=== PATIENT | female | born 1995 | race Caucasian/White ===

== ENCOUNTER 2023-11-11 05:34 | Inpatient (IN) | payer BC ==
[2023-11-11] VITALS (18 sets, daily range): BP systolic 93–138; BP diastolic 57–109; PULSE 60–83; TEMP 97.6–98.5
[2023-11-11] MEDS ORDERED: LR 1,000 ML IV SCH ×3 (06:30→06:45)
[2023-11-11] MEDS ORDERED: Ondansetron 4 MG/2 ML VIAL IV SCH (06:45)
[2023-11-11] MEDS ORDERED: Ondansetron 4 MG/2 ML VIAL IV PRN ×2 (06:45→07:30)
[2023-11-11] MEDS ORDERED: Morphine 4 MG/ML VIAL IV PRN (06:45)
[2023-11-11] MEDS ORDERED: PRENATAL TABLET PO (06:51)
[2023-11-11] MEDS ORDERED: COLACE 100100 MG/CAP PO (06:51)
[2023-11-11] MEDS ORDERED: URSO250 MG (06:52)
[2023-11-11] MEDS ORDERED: Oxytocin 10 UNITS/ML VIAL ONE (06:55)
[2023-11-11] MEDS ORDERED: NS 10 ML IV ONE (06:55)
[2023-11-11] MEDS ORDERED: dexAMETHasone 10 MG/ML VIAL ONE (06:55)
[2023-11-11] MEDS ORDERED: Ketorolac 30 MG/ML VIAL ONE (06:55)
[2023-11-11] MEDS ORDERED: Ondansetron 4 MG/2 ML VIAL ONE (06:55)
--- NOTE | 2023-11-11 07:15 | NUR ---
Pt in room and in hospital gown at 0605. EFM explained and placed, VS taken. IV started in left forearm, labs drawn, LR started per orders. Consents discussed and signed, assessment performed. Abdominal prep done. Pt escorted back to OR for scheduled at 0730.
[2023-11-11] MEDS ORDERED: PERCOCET 325 MG1 TA2 PO (07:21)
[2023-11-11] MEDS ORDERED: MOTRIN 800800 MG/TAB PO (07:21)
[2023-11-11 07:25] LABS: BASO % 0.4 % (0.0-2.0); EOS # 0.1 K/mm3 (0.0-0.7); EOS % 1.1 % (0.0-4.0); GRAN # 5.8 K/mm3 (1.4-6.5); GRAN % 69.3 % (42.2-75.2); HEMOGLOBIN 11.1 g/dl (12.5-16.0); LYMPH # 1.7 K/mm3 (1.2-3.4); LYMPH % 19.8 % (20.0-51.0); MEAN CELL VOLUME 90 fl (80.0-100.0); MEAN CORPUSCULAR HEMOGLOBIN 30 pg (27-31); MEAN CORPUSCULAR HGB CONC 33 g/dl (33.0-37.0); MEAN PLATELET VOLUME 10.8 fl (7.4-10.4); MONO # 0.7 K/mm3 (0.1-0.6); MONO % 8.9 % (1.7-9.3); PLATELET COUNT 198 K/mm3 (130-400); RED BLOOD COUNT 3.68 M/mm3 (4.10-5.30); REDCELL DISTRIBUTION WIDTH-CV 13.1 % (11.5-14.5)
[2023-11-11 07:30] LABS: HEMATOCRIT 33.2 % (37.0-47.0)
[2023-11-11] MEDS ORDERED: Measles/Mumps/Rubella Virus Vaccine Live w Diluent 0.5 ML VIAL SQ SCH (07:30)
[2023-11-11] MEDS ORDERED: Loratadine 10 MG TAB PO PRN (07:30)
[2023-11-11] MEDS ORDERED: oxyCODONE 5 MG TAB PO PRN (07:30)
[2023-11-11] MEDS ORDERED: Magnes Hydrox (MOM) 80 MG/ML 30 ML CUP PO PRN (07:30)
[2023-11-11] MEDS ORDERED: LR 1,000 ML IV PRN (07:30)
[2023-11-11] MEDS ORDERED: Naloxone 0.4 MG/ML VIAL IV PRN (07:30)
[2023-11-11] MEDS ORDERED: Acetaminophen 500 MG TAB PO PRN (07:30)
[2023-11-11] MEDS ORDERED: Sennosides/Docusate 8.6-50 MG TAB PO SCH (08:00)
[2023-11-11] MEDS ORDERED: Phenylephrine 10 MG/ML VIAL ONE (08:16)
[2023-11-11] MEDS ORDERED: LR 1,000 ML IV ONE ×2 (08:18→08:39)
[2023-11-11] MEDS ORDERED: Ibuprofen 800 MG TAB PO SCH (14:00)
--- NOTE | 2023-11-11 15:16 | NUR ---
SCDs removed. Pt up to sitting at bedside independently. Pt denies dizziness/lightheadedness. Pt then up to standing at bedside independenlty, denies discomfort. Pt ambulates with standby assist to bathroom, sits on toilet. Loera removed, pericare provided, gown changed, panties and pad placed. Pt ambulates to sink with standby assist, does self-care. Bed pad changed, binder applied, pt assisted back into bed. Pt denies needs at this time.
[2023-11-11] MEDS ORDERED: traZODone 50 MG TAB PO PRN (21:00)
[2023-11-12 04:30] VITALS: BP 122/60; PULSE 62; TEMP 98
[2023-11-12 07:20] VITALS: BP 123/74; PULSE 62; TEMP 98
[2023-11-12] MEDS ORDERED: Omeprazole 20 MG **** subs to Pantoprazole 40 MG PO SCH (07:45)
--- NOTE | 2023-11-12 09:55 | NUR ---
Initial visit; Parents thanked [employer] for looking in on them and offering congratulations and God's blessings for the of their daughter. [employer] thanked family for choosing [facility] and for letting [employer] know their stay here has been a pleasant one.
[2023-11-12 16:53] VITALS: BP 120/60; PULSE 70; TEMP 98.1
[2023-11-12 19:00] VITALS: BP 122/77; PULSE 68; TEMP 97.9
[2023-11-13 08:30] VITALS: BP 125/74; PULSE 67; TEMP 98.8
--- NOTE | 2023-11-13 11:33 | NUR ---
ALL DC INSTRUCTIONS AND FOLLOW UP APPOINTMENTS REVIEWED AND UNDERSTOOD BY PT AND FOB. ALL BELONGINGS ACCOUNTED FOR. DENY FURTHER QUESTION OR CONCERNS. AMBULATORY FROM UNIT IN STABLE CONDITION @ 1576.
== END 2023-11-13 11:33 | disposition home or self-care (01) | DRG 787 ==
LOC: OB 05:34
PROVIDERS: ADMIT Obstetrics & Gynecology
PROC: 10D00Z1 Extraction of Products of Conception, Low, Open Approach (ICD-10-PCS; principal; 2023-11-11)
DX: O32.1XX0 Maternal care for breech presentation, not applicable or unspecified (principal); O26.643 Intrahepatic cholestasis of pregnancy, third trimester; Z3A.37 37 weeks gestation of pregnancy; Z37.0 Single live birth; E78.79 Other disorders of bile acid and cholesterol metabolism; K76.89 Other specified diseases of liver; O69.81X0 Labor and delivery complicated by cord around neck, without compression, not applicable or unspecified; Z88.8 Allergy status to other drugs, medicaments and biological substances; Z91.018 Allergy to other foods
CPT/HCPCS: J0665; J0690; J1100; J1885; J2371; J2405; J2590; J2765; J7120